=== PATIENT | female | born 1960 | race Caucasian/White ===

== ENCOUNTER 2019-05-30 13:30 | Inpatient (IN) | payer OTHER ==
[~2019-05-30] VITALS: Ht 157.5 cm; Wt 102.5 kg
[2019-05-30] MEDS ORDERED: ALBUTEROL/IPRATROPIUM 2.5MG/0.5MG, 3 ML ONE (13:47)
[2019-05-30] MEDS ORDERED: methylPREDNISolone SOD SUCC 125 MG/2 ML ONE (14:00)
[2019-05-30] MEDS ORDERED: SODIUM CHLORIDE 0.9%, 500ML IVBOLUS ONE (14:00)
[2019-05-30] MEDS ORDERED: methylPREDNISolone SOD SUCC 125 MG/2 ML IVPush SCH (14:00)
[2019-05-30] MEDS ORDERED: SODIUM CHLORIDE FLUSH 10ML SYR IVF ONE (14:00)
[2019-05-30] MEDS ORDERED: ALBUTEROL/IPRATROPIUM 2.5MG/0.5MG, 3 ML NPPB ONE (14:00)
[2019-05-30 14:08] LABS: ALBUMIN 3.7 g/dL (3.4-5.0); ANION GAP 7 mmol/L (5-15); CALCIUM 8.8 mg/dL (8.5-10.1); CHLORIDE 107 mmol/L (98-107)
[2019-05-30 14:24] LABS: TROPONIN I < 0.015 ng/mL (0.000-0.045)
--- NOTE | 2019-05-30 14:35 | NUR ---
PT RESTING ON GURNEY. BREATHING IMPROVED. VSS.
[2019-05-30 14:38] LABS: BASOPHILS # (AUTO) 0.04 x10^3/uL (0-0.1); BASOPHILS % (AUTO) 0 % (0-1); EOSINOPHILS # (AUTO) 0.26 x10^3/uL (0-0.4); EOSINOPHILS % (AUTO) 3 % (1-7); LYMPHOCYTES # (AUTO) 0.96 x10^3/uL (1-3.4); LYMPHOCYTES % (AUTO) 11 % (22-44); MD SCAN; MEAN CORPUSCULAR HEMOGLOBIN 23.4 pg (27.0-34.8); MEAN CORPUSCULAR VOLUME 75.6 fL (80-100); MEAN PLATELET VOLUME 7.8 fL (7.4-10.4); MONOCYTES % (AUTO) 5 % (2-9); NEUTROPHILS # (AUTO) 7.44 x10^3/uL (1.8-6.8); NEUTROPHILS % (AUTO) 82 % (42-75); PLATELET COUNT 395 x10^3/uL (130-400); RED BLOOD COUNT 4.31 x10^6/uL (3.82-5.3); RED CELL DISTRIBUTION WIDTH 21.2 % (9.6-15.2)
[2019-05-30 14:57] LABS: RAPID INFLUENZA A Negative (Negative); RAPID INFLUENZA B Negative (Negative)
--- NOTE | 2019-05-30 15:40 | NUR ---
PT RESTING ON GURNEY. NADN. GODFREY.
[2019-05-30] MEDS ORDERED: POTASSIUM CHLORIDE 20 MEQ TAB.ER.PRT ONE (15:47)
[2019-05-30] MEDS ORDERED: FUROSEMIDE 20 MG/2 ML ONE (15:47)
[2019-05-30] MEDS ORDERED: POTASSIUM CHLORIDE 20 MEQ TAB.ER.PRT PO ONE (16:00)
[2019-05-30] MEDS ORDERED: FUROSEMIDE 20 MG/2 ML IV ONE (16:00)
--- NOTE | 2019-05-30 16:22 | NUR ---
PT RESTING ON GURNEY. KOCH VSS. ATTEMPTED TO COMPLETE MED REC. PT DOES NOT KNOW HER MEDICATIONS. TO GO RETRIEVE PT MED LIST.
[2019-05-30] MEDS ORDERED: NICOTINE 21 MG/24 HR PATCH.TD24 TD ONE (17:00)
--- NOTE | 2019-05-30 17:03 | NUR ---
PT RESTING ON JAYDE. CHRIS. VSS. PER ERP DR. FSIH PINA FOR PT TO EAT. DINNER TRAY PROVIDED.
--- NOTE | 2019-05-30 17:29 | NUR ---
REPORT GIVEN TO AMELIE, RECEIVING RN. ALL QUESTIONS ANSWERED. AWAITING PT TRANSPORT.
[2019-05-30 17:38] LABS: HEMOGLOBIN A1C 6.7 % (4.2-6.3)
[2019-05-30 17:56] VITALS: BP 146/81
[2019-05-30] MEDS: GUAIFENESIN 200 MG TABLET PO SCH ×2 (18:29→22:45)
[2019-05-30] MEDS: ENOXAPARIN 40 MG/0.4 ML SQ SCH (18:29)
[2019-05-30] MEDS ORDERED: ALBUTEROL SULFATE 2.5 MG/3 ML NPPB PRN (19:30)
[2019-05-30 20:20] VITALS: BP 133/75
[2019-05-30 20:26] LABS: TROPONIN I 0.022 ng/mL (0.000-0.045)
[2019-05-30] MEDS: methylPREDNISolone SOD SUCC 125 MG/2 ML IVPush SCH (20:37)
[2019-05-30] MEDS ORDERED: LEVO150T5 PO (20:54)
[2019-05-30] MEDS ORDERED: MELO15TA24 PO (20:54)
[2019-05-30] MEDS ORDERED: ASPI-496 PO (20:54)
[2019-05-30] MEDS ORDERED: AMLO-150 PO (20:54)
[2019-05-30] MEDS ORDERED: LOSA25TA25 PO (20:54)
[2019-05-30] MEDS ORDERED: OMEP-110 PO (20:54)
[2019-05-30] MEDS ORDERED: ATOR10TA9 PO (20:54)
[2019-05-30] MEDS ORDERED: FENO145T30 PO (20:54)
[2019-05-30] MEDS ORDERED: METF500T17 PO (20:54)
[2019-05-30] MEDS ORDERED: DOCU100C33 PO (20:58)
[2019-05-30] MEDS ORDERED: PSYL0.528 PO (21:28)
[2019-05-30] MEDS ORDERED: CHOL2000 PO (21:28)
[2019-05-30] MEDS ORDERED: CALC1CAP8 PO (21:28)
[2019-05-30] MEDS ORDERED: FERR-46 PO (21:28)
[2019-05-30] MEDS: INSULIN LISPRO 100 UNITS/ML, PEN SQ-INSULIN SCH ×2 (21:54→21:55)
[2019-05-31] MEDS: methylPREDNISolone SOD SUCC 125 MG/2 ML IVPush SCH ×3 (01:31→15:50)
[2019-05-31 02:04] VITALS: BP 134/78
[2019-05-31] MEDS: GUAIFENESIN 200 MG TABLET PO SCH ×4 (05:10→20:33)
[2019-05-31 05:28] LABS: CHLORIDE 111 mmol/L (98-107)
[2019-05-31 05:34] LABS: ALANINE AMINOTRANSFERASE 50 U/L (12-78); ALBUMIN 3.4 g/dL (3.4-5.0); ALKALINE PHOSPHATASE 41 U/L (45-117); ANION GAP 6 mmol/L (5-15); BILIRUBIN,TOTAL 0.4 mg/dL (0.2-1.0); CREATININE 0.72 mg/dL (0.55-1.02); TOTAL PROTEIN 6.8 g/dL (6.4-8.2)
[2019-05-31] MEDS ORDERED: AMLODIPINE 5 MG TABLET PO SCH (09:00)
[2019-05-31] MEDS ORDERED: MELOXICAM 15 MG TABLET PO SCH (09:00)
[2019-05-31] MEDS ORDERED: METOPROLOL TARTRATE 25 MG TABLET PO SCH (09:00)
[2019-05-31] MEDS ORDERED: metFORMIN 500 MG TABLET PO SCH (09:00)
[2019-05-31] MEDS: DOCUSATE 100 MG CAPSULE PO SCH ×2 (09:26→20:33)
[2019-05-31] MEDS: OMEPRAZOLE 20 MG CAPSULE.DR PO SCH (09:26)
[2019-05-31] MEDS: ASPIRIN 81 MG TABLET EC PO SCH (09:26)
[2019-05-31] MEDS: FENOFIBRATE 145 MG TABLET PO SCH (09:26)
[2019-05-31] MEDS: LOSARTAN 25MG TABLET PO SCH (09:26)
[2019-05-31] MEDS: CALCIUM/VITAMIN D3 250-125 TABLET PO SCH (09:26)
[2019-05-31] MEDS ORDERED: ACETAMINOPHEN 325 MG TABLET ONE (09:50)
[2019-05-31] MEDS: FUROSEMIDE 20 MG/2 ML IV SCH ×2 (09:52→15:50)
[2019-05-31] MEDS: ACETAMINOPHEN 325 MG TABLET PO PRN ×2 (09:52→15:50)
[2019-05-31] MEDS: IRON SUCROSE COMPLEX 100MG/5ML IV SCH (09:52)
[2019-05-31] MEDS: LEVOTHYROXINE 150 MCG TABLET PO SCH (09:52)
[2019-05-31] MEDS: INSULIN LISPRO 100 UNITS/ML, PEN SQ-INSULIN SCH ×7 (10:06→20:46)
[2019-05-31 10:52] LABS: TROPONIN I < 0.015 ng/mL (0.000-0.045)
[2019-05-31 12:34] VITALS: BP 110/69
[2019-05-31 17:00] LABS: CHOL/HDL RATIO 2.6; LDL/HDL RATIO 1.3 (0.5-3.0)
[2019-05-31] MEDS: CARVEDILOL 3.125 MG TABLET PO SCH (17:43)
[2019-05-31 19:53] VITALS: BP 136/78
[2019-05-31] MEDS: ATORVASTATIN 40 MG TABLET PO SCH (20:33)
[2019-05-31] MEDS: ENOXAPARIN 40 MG/0.4 ML SQ SCH (20:33)
[2019-05-31] MEDS ORDERED: ATORVASTATIN 10 MG TABLET PO SCH (21:00)
[2019-06-01 01:31] VITALS: BP 114/74
[2019-06-01 05:20] VITALS: BP 127/83
[2019-06-01] MEDS: GUAIFENESIN 200 MG TABLET PO SCH ×4 (05:21→20:48)
[2019-06-01] MEDS: CARVEDILOL 3.125 MG TABLET PO SCH ×2 (05:21→17:26)
[2019-06-01] MEDS: LEVOTHYROXINE 150 MCG TABLET PO SCH (05:21)
[2019-06-01 05:38] LABS: ALANINE AMINOTRANSFERASE 43 U/L (12-78); ALBUMIN 3.4 g/dL (3.4-5.0); ANION GAP 6 mmol/L (5-15); CALCIUM 9.1 mg/dL (8.5-10.1); CHLORIDE 110 mmol/L (98-107); CREATININE 0.65 mg/dL (0.55-1.02)
[2019-06-01 05:40] LABS: ALKALINE PHOSPHATASE 40 U/L (45-117); BILIRUBIN,TOTAL 0.3 mg/dL (0.2-1.0)
[2019-06-01 05:42] LABS: MEAN CORPUSCULAR HEMOGLOBIN 23.2 pg (27.0-34.8); MEAN CORPUSCULAR HGB CONC 30.4 g/dL (32.4-35.8); MEAN CORPUSCULAR VOLUME 76.2 fL (80-100); PLATELET COUNT 377 x10^3/uL (130-400); RED BLOOD COUNT 4.09 x10^6/uL (3.82-5.3); RED CELL DISTRIBUTION WIDTH 21.8 % (9.6-15.2)
[2019-06-01 06:24] LABS: MD MORPH REVIEW ONLY
[2019-06-01 06:25] LABS: ANISOCYTOSIS 2+; BASOPHILS # (AUTO) 0.02 x10^3/uL (0-0.1); BASOPHILS % (AUTO) 0 % (0-1); EOSINOPHILS # (AUTO) 0.17 x10^3/uL (0-0.4); EOSINOPHILS % (AUTO) 1 % (1-7); LYMPHOCYTES # (AUTO) 1.62 x10^3/uL (1-3.4); LYMPHOCYTES % (AUTO) 10 % (22-44); MICROCYTOSIS 1+; MONOCYTES # (AUTO) 1.05 x10^3/uL (0.2-0.8); MONOCYTES % (AUTO) 6 % (2-9); NEUTROPHILS % (AUTO) 83 % (42-75); OVALOCYTES 1+; POLYCHROMASIA 1+
[2019-06-01 06:26] LABS: <PLATELET ESTIMATE> ADEQUATE; <PLT MORPHOLOGY> NORMAL PLT MORPH; HYPOCHROMIA 2+
[2019-06-01] MEDS: INSULIN LISPRO 100 UNITS/ML, PEN SQ-INSULIN SCH ×4 (07:00→20:55)
[2019-06-01 07:47] VITALS: BP 101/65
[2019-06-01] MEDS: OMEPRAZOLE 20 MG CAPSULE.DR PO SCH (08:32)
[2019-06-01] MEDS: IRON SUCROSE COMPLEX 100MG/5ML IV SCH (08:33)
[2019-06-01] MEDS: FENOFIBRATE 145 MG TABLET PO SCH (08:33)
[2019-06-01] MEDS: FUROSEMIDE 20 MG/2 ML IV SCH (08:33)
[2019-06-01] MEDS: CALCIUM/VITAMIN D3 250-125 TABLET PO SCH (08:33)
[2019-06-01] MEDS: LOSARTAN 25MG TABLET PO SCH (08:33)
[2019-06-01] MEDS: DOCUSATE 100 MG CAPSULE PO SCH ×2 (08:33→20:50)
[2019-06-01] MEDS: ASPIRIN 81 MG TABLET EC PO SCH (08:33)
[2019-06-01] MEDS ORDERED: POLYETHYLENE GLYCOL 17 GM PACKET PO PRN (10:30)
[2019-06-01] MEDS ORDERED: SENNA/DOCUSATE TABLET PO PRN (10:30)
[2019-06-01 16:36] VITALS: BP 126/73
[2019-06-01 18:47] LABS: OCCULT BLOOD NEGATIVE (NEGATIVE)
[2019-06-01] MEDS: ATORVASTATIN 40 MG TABLET PO SCH (20:49)
[2019-06-01] MEDS: ENOXAPARIN 40 MG/0.4 ML SQ SCH (20:50)
[2019-06-01 20:55] VITALS: BP 118/76
[2019-06-02 01:17] VITALS: BP 115/67
[2019-06-02] MEDS: CARVEDILOL 3.125 MG TABLET PO SCH (05:38)
[2019-06-02] MEDS: LEVOTHYROXINE 150 MCG TABLET PO SCH (05:38)
[2019-06-02] MEDS: GUAIFENESIN 200 MG TABLET PO SCH ×2 (05:38→12:26)
[2019-06-02 05:49] LABS: MEAN CORPUSCULAR HEMOGLOBIN 22.9 pg (27.0-34.8); MEAN CORPUSCULAR HGB CONC 30.7 g/dL (32.4-35.8); MEAN CORPUSCULAR VOLUME 74.8 fL (80-100); MEAN PLATELET VOLUME 7.6 fL (7.4-10.4); PLATELET COUNT 374 x10^3/uL (130-400); RED BLOOD COUNT 4.41 x10^6/uL (3.82-5.3)
[2019-06-02 05:54] LABS: ANION GAP 6 mmol/L (5-15); CALCIUM 8.9 mg/dL (8.5-10.1); CHLORIDE 105 mmol/L (98-107); CREATININE 0.69 mg/dL (0.55-1.02)
[2019-06-02 06:11] LABS: BASOPHILS # (AUTO) 0.06 x10^3/uL (0-0.1); BASOPHILS % (AUTO) 1 % (0-1); EOSINOPHILS # (AUTO) 0.04 x10^3/uL (0-0.4); EOSINOPHILS % (AUTO) 0 % (1-7); LYMPHOCYTES # (AUTO) 2.45 x10^3/uL (1-3.4); LYMPHOCYTES % (AUTO) 22 % (22-44); MD SCAN; MONOCYTES # (AUTO) 0.72 x10^3/uL (0.2-0.8); MONOCYTES % (AUTO) 7 % (2-9); NEUTROPHILS # (AUTO) 7.68 x10^3/uL (1.8-6.8); NEUTROPHILS % (AUTO) 70 % (42-75)
[2019-06-02] MEDS: INSULIN LISPRO 100 UNITS/ML, PEN SQ-INSULIN SCH ×2 (07:00→12:26)
[2019-06-02 08:18] VITALS: BP 120/72
[2019-06-02] MEDS ORDERED: REGADENOSON 0.4 MG/5 ML SYRINGE ONE (08:31)
[2019-06-02] MEDS ORDERED: FUROSEMIDE 20 MG TABLET PO SCH (09:00)
[2019-06-02] MEDS ORDERED: SPIRONOLACTONE 25 MG TABLET PO SCH (09:00)
[2019-06-02] MEDS: CALCIUM/VITAMIN D3 250-125 TABLET PO SCH (10:25)
[2019-06-02] MEDS: OMEPRAZOLE 20 MG CAPSULE.DR PO SCH (10:26)
[2019-06-02] MEDS: ASPIRIN 81 MG TABLET EC PO SCH (10:26)
[2019-06-02] MEDS: LOSARTAN 25MG TABLET PO SCH (10:26)
[2019-06-02] MEDS: FENOFIBRATE 145 MG TABLET PO SCH (10:27)
[2019-06-02] MEDS: DOCUSATE 100 MG CAPSULE PO SCH (10:27)
[2019-06-02] MEDS ORDERED: FURO20TA3 PO (14:34)
[2019-06-02] MEDS ORDERED: CARV3.1212 PO (14:34)
[2019-06-02] MEDS ORDERED: METF500T17 PO (14:34)
[2019-06-02] MEDS ORDERED: ATOR40TA78 PO (14:34)
[2019-06-02] MEDS ORDERED: SPIR25TA PO (14:34)
== END 2019-06-02 16:36 | disposition home or self-care (01) | DRG 291 ==
LOC: ED 16:00 → EDIP 16:05 → 5SO 17:46
PROVIDERS: ADMIT Internal Medicine; ATTEND Family Medicine
DX: I11.0 Hypertensive heart disease with heart failure (principal); J96.01 Acute respiratory failure with hypoxia; I50.21 Acute systolic (congestive) heart failure; J44.1 Chronic obstructive pulmonary disease with (acute) exacerbation; I42.0 Dilated cardiomyopathy; D50.9 Iron deficiency anemia, unspecified; E03.9 Hypothyroidism, unspecified; E11.9 Type 2 diabetes mellitus without complications; E78.5 Hyperlipidemia, unspecified; F17.200 Nicotine dependence, unspecified, uncomplicated; J20.8 Acute bronchitis due to other specified organisms; I34.0 Nonrheumatic mitral (valve) insufficiency; G89.29 Other chronic pain; I44.7 Left bundle-branch block, unspecified; K59.00 Constipation, unspecified; Z80.41 Family history of malignant neoplasm of ovary; Z82.3 Family history of stroke
CPT/HCPCS: 36415; 87400; 93017; J7620; 71045; 78452; 80048; 80053; 80061; 82040; 82272; 82728; 82962; 83036; 83540; 83550; 83735; 83880; 84443; 84466; 84484; 85025; 87070; 87205; 93005; 93306; 94640; G0378; J1650; J1756; J2785; A9502; J1815; J1940; J2930; J7040; J7512

== ENCOUNTER → 2019-11-13 | Outpatient (CLI) | payer OTHER ==
[~2019-11-13] MED LIST: AMLO-150 PO; ASPI-496 PO; ATOR10TA9 PO; ATOR40TA78 PO; CALC1CAP8 PO; CARV3.1212 PO; CHOL2000 PO; DOCU100C33 PO; FENO145T19 PO; FERR-46 PO; FURO20TA3 PO; LEVO150T5 PO; LOSA25TA25 PO; MELO15TA24 PO; METF500T17 PO; OMEP-110 PO; PSYL0.528 PO; SPIR25TA PO
== END | disposition home or self-care (01) ==
LOC: CFH 12:30
PROVIDERS: ATTEND Internal Medicine Cardiovascular Disease
DX: I08.0 Rheumatic disorders of both mitral and aortic valves (principal); I42.9 Cardiomyopathy, unspecified
CPT/HCPCS: 93306

== ENCOUNTER 2020-10-26 13:39 | Outpatient (CLI) | payer OTHER | END 2020-10-26 23:59 | disposition home or self-care (01) | LOC: CVU 13:39 | PROVIDERS: ATTEND Internal Medicine Cardiovascular Disease | DX: I36.1 Nonrheumatic tricuspid (valve) insufficiency (principal); I65.23 Occlusion and stenosis of bilateral carotid arteries; I42.9 Cardiomyopathy, unspecified; I10 Essential (primary) hypertension; E66.9 Obesity, unspecified; F17.211 Nicotine dependence, cigarettes, in remission | CPT/HCPCS: 93306; 93880 ==